=== PATIENT | female | born 1950 | race Caucasian/White ===

== ENCOUNTER → 2017-09-13 | Outpatient (CLI) | payer MEDICARE, OTHER ==
[~2017-09-13] MED LIST: ASPI325; LOSARTAN-HCTZ1 EAC1; Voltaren100 GM
== END | disposition home or self-care (01) ==
LOC: LAB 16:09 → LAB SHORT 16:09
PROVIDERS: Obstetrics & Gynecology
DX: Z01.419 Encounter for gynecological examination (general) (routine) without abnormal findings (principal)
CPT/HCPCS: 87624; G0123

== ENCOUNTER 2020-06-09 09:49 | Day surgery (SDC) | payer MEDICARE, OTHER ==
[~2020-06-09] VITALS: Ht 165.1 cm; Wt 114.2 kg
[~2020-06-09 09:49] MED LIST changes: -ASPI325; +ASPI325 PO; +CALCIUM 600 +1 EA11 PO; -LOSARTAN-HCTZ1 EAC1; +LOSARTAN-HCTZ1 EAC5 PO; +METO25 PO; +OMEGA-3 FISH O1 EAC6 PO; +TURMERIC500 M2 PO
== END 2020-06-09 11:58 | disposition home or self-care (01) ==
LOC: ORSCSDS 09:49
PROVIDERS: Internal Medicine Gastroenterology
PROC: 0DBK8ZX Excision of Ascending Colon, Via Natural or Artificial Opening Endoscopic, Diagnostic (ICD-10-PCS; principal; 2020-06-09 11:00)
PROC: 0DBL8ZX Excision of Transverse Colon, Via Natural or Artificial Opening Endoscopic, Diagnostic (ICD-10-PCS; principal; 2020-06-09 11:00)
DX: Z12.11 Encounter for screening for malignant neoplasm of colon (principal); Z86.010 Personal history of colon polyps; D12.3 Benign neoplasm of transverse colon; D12.2 Benign neoplasm of ascending colon; K21.9 Gastro-esophageal reflux disease without esophagitis; K64.8 Other hemorrhoids; I10 Essential (primary) hypertension; E66.01 Morbid (severe) obesity due to excess calories; Z68.41 Body mass index [BMI] 40.0-44.9, adult; Z79.82 Long term (current) use of aspirin; Z79.899 Other long term (current) drug therapy
CPT/HCPCS: 88305; J2704; J7120

== ENCOUNTER 2020-10-19 08:13 | Day surgery (SDC) | payer MEDICARE, OTHER ==
[~2020-10-19] VITALS: Ht 162.6 cm; Wt 112.0 kg
--- NOTE | 2020-10-19 09:21 | NUR ---
History, Chart, Medications and Allergies reviewed before start of procedure. Patient confirms NPO status and agrees with scheduled surgery. Lungs clear T/O to Auscultation.
--- NOTE | 2020-10-19 10:09 | NUR ---
KNEE HIGH YONATHAN HOSE WITH CALF PAS APPLIED TO BLE. NOZIN NASAL SYSTEM ARCHITECT X3 AMPULES USED TO CLEAN NARES BILAT PER DR LYONS ORDER.
--- NOTE | 2020-10-19 10:35 | NUR ---
UP TO BR TO VOID.
--- NOTE | 2020-10-19 17:05 | NUR ---
SHIFT SUMMARY S/P L HUA [id number], DRESSING CDI, POLAR CARINA IN PLACE. PT TOLERATING PO WELL. PT DENIES NEED TO VOID CURRENTLY BUT WILL CALL WHEN READY TO WALK TO RESTROOM. PAIN MANAGED PER EMAR WITH SCHEDULED TYLENOL AND TORODOL. DENIES NEED FOR FURTHER PAIN MEDICATION. PLAN IS TO WORK WITH THERAPY AND POSSIBLE DC HOME.
[2020-10-20 04:21] LABS: BASOPHILS ABSOLUTE AUTO 0.01 K/mm3 (0.00-0.23); BASOPHILS PERCENT AUTO 0 % (0-2); EOSINOPHILS PERCENT AUTO 0 % (0-6); Hemoglobin 11.6 g/dL (11.5-16.0); IMMATURE GRAN ABSOLUTE AUTO 0.05 K/mm3 (0.00-0.10); IMMATURE GRAN PERCENT AUTO 0 % (0-1); LYMPHOCYTES ABSOLUTE AUTO 1.39 K/mm3 (0.84-5.20); LYMPHOCYTES PERCENT AUTO 12 % (21-46); MONOCYTES ABSOLUTE AUTO 0.71 K/mm3 (0.16-1.47); MONOCYTES PERCENT AUTO 6 % (4-13); Mean Corpuscular HGB 31.2 pg (26.0-34.0); Mean Corpuscular HGB Conc 34.1 g/dL (31.5-36.5); Mean Corpuscular Volume 91 fL (80-100); Mean Platelet Volume 10.3 fL (9.1-12.4); NEUTROPHILS ABSOLUTE AUTO 9.87 K/mm3 (1.96-9.15); NEUTROPHILS PERCENT AUTO 82 % (41-73); Platelet Count 193 K/mm3 (150-400); RDW Coefficient Variation 13.4 % (11.7-14.2); RDW Standard Deviation 45.4 fL (35.1-46.3); Red Blood Cell Count 3.72 M/mm3 (3.80-5.20); White Blood Cell Count 12.03 K/mm3 (4.00-11.30)
[2020-10-20 04:39] LABS: Anion Gap 5 mmol/L (6-16); Blood Urea Nitrogen 22 mg/dL (8-24); Bun/Creatinine Ratio 25.6 (12.0-20.0); CO2, Blood 28 mmol/L (21-32); Chloride, Blood 105 mmol/L (98-108); Creatinine, Blood 0.86 mg/dL (0.40-1.00); Glomerular Filtration Rate >60 (60-); Glucose, Blood 113 mg/dL (70-99); Potassium, Blood 4.2 mmol/L (3.5-5.5); Sodium, Blood 138 mmol/L (136-145)
--- NOTE | 2020-10-20 04:58 | NUR ---
SHIFT SUMMARY A/OX4, 1 ASSIST WITH FWW AND GB. UP AMBULATING CHOUDHARY DURING SHIFT. VOIDING WELL, RATES PAIN 1-2. AQUACEL DRESSING C/D/I, POLAR PACK IN PLACE. VSS, NO ACUTE CHANGES AT THIS TIME. BED IN LOWEST POSITION WITH CALL LIGHT IN REACH. WILL CONTINUE TO MONITOR AND REPORT TO ONCOMING RN.
[2020-10-20] MEDS ORDERED: XARELTO10 M3 PO (08:34)
[2020-10-20] MEDS ORDERED: Percocet 5-3251 EACH PO (08:34)
--- NOTE | 2020-10-20 10:54 | NUR ---
DISCHARGE NOTE: PATIENT WAS EDUCATED ON DISCHARGE INSTRUCTIONS. SHE VERBALIZED UNDERSTANDING AND HAD NO FURTHER QUESTIONS AT THIS TIME. SHE IS ALERT AND ORIENTED X4. VS ARE WNL AND ON RA. PAIN IS MANAGED WITH PO PAIN MEDICATIONS. SHE HAS HER HARD PERSCRIPTIONS WITH HER INSTRUCTIONS. PATIENT IS DRESSED AND HAS HER ITEMS GATHERED. AQUACEL ON HER HIP IS C/D/I. SHE IS ABLE TO WIGGLE FINGERS AND TOES. SHE IS BEING WHEELCHAIRED OUT CURRENTLY TO MEET WITH HER SON. IV WAS DISCONTINUED AND WAS WNL.
== END 2020-10-20 11:00 | disposition home or self-care (01) ==
LOC: ORSCMMR 08:13 → ORD 13:30 → ORSCMMR 13:30 → SURS 14:09 → ORSCMMR 10-20 11:00
PROVIDERS: Orthopaedic Surgery
PROC: 0SR90JA Replacement of Right Hip Joint with Synthetic Substitute, Uncemented, Open Approach (ICD-10-PCS; principal; 2020-10-19 09:45)
DX: M16.11 Unilateral primary osteoarthritis, right hip (principal); I10 Essential (primary) hypertension; E78.5 Hyperlipidemia, unspecified; E66.01 Morbid (severe) obesity due to excess calories; Z68.41 Body mass index [BMI] 40.0-44.9, adult; Z79.82 Long term (current) use of aspirin; Z79.899 Other long term (current) drug therapy
CPT/HCPCS: 36415; 72170; 80048; 85025; 97110; 97116; 97161; 97530; A9270; C1776; J0171; J0690; J0735; J1100; J1885; J2250; J2370; J2405; J2704; J2710; J2795; J3010; J7120

== ENCOUNTER 2022-03-21 06:31 | Day surgery (SDC) | payer MEDICARE, OTHER ==
[~2022-03-21] VITALS: Ht 165.1 cm; Wt 117.3 kg
[~2022-03-21 06:31] MED LIST changes: +ASPI81CH PO; +C COMPLEX1000 M1 PO; +DILTIAZEM 24HR120 M4 PO; +FISH OIL PO; +Percocet 5-3251 EACH PO; +XARELTO10 M3 PO; +[UNRECOGNIZED DRUG - CODE] PO
--- NOTE | 2022-03-21 08:47 | NUR ---
Ambulatory in Day Surgery. Patient confirms NPO status and agrees with scheduled surgery. Pre-Op teaching done. Pt verbalizes understanding. Lungs clear T/O to Auscultation. Patient reports completing Chlorhexadine shower X2 prior to admission to hospital.
--- NOTE | 2022-03-21 17:53 | NUR ---
SHIFT SUMMARY PT HAS DONE WELL POST OP. SPINAL WORE OFF NICELY w/ GOOD PAIN MANAGEMENT TO PO MEDS. EATING, DRINKING, VOIDING. UP TO WORK w/ THERAPY & UP TO CHAIR FOR DINNER. PLEASANT & COOPERATIVE.
--- NOTE | 2022-03-22 04:26 | NUR ---
SUMMARY PT HAS NO NEW ISSUES NOTED. PT PAIN HAS BEEN MINIMAL. PT HAS BEEN SLEEPING WELL THIS SHIFT. PT AMBULATORY AND VOIDING WELL. CALL LIGHT IN REACH.
[2022-03-22 05:13] LABS: BASOPHILS ABSOLUTE AUTO 0.01 K/mm3 (0.00-0.23); BASOPHILS PERCENT AUTO 0 % (0-2); EOSINOPHILS PERCENT AUTO 0 % (0-6); Hematocrit 34.1 % (33.0-51.0); Hemoglobin 11.3 g/dL (11.5-16.0); IMMATURE GRAN ABSOLUTE AUTO 0.04 K/mm3 (0.00-0.10); IMMATURE GRAN PERCENT AUTO 0 % (0-1); LYMPHOCYTES ABSOLUTE AUTO 1.02 K/mm3 (0.84-5.20); LYMPHOCYTES PERCENT AUTO 9 % (21-46); MONOCYTES ABSOLUTE AUTO 0.68 K/mm3 (0.16-1.47); MONOCYTES PERCENT AUTO 6 % (4-13); Mean Corpuscular HGB 31.4 pg (26.0-34.0); Mean Corpuscular HGB Conc 33.1 g/dL (31.5-36.5); Mean Corpuscular Volume 95 fL (80-100); NEUTROPHILS ABSOLUTE AUTO 10.07 K/mm3 (1.96-9.15); NEUTROPHILS PERCENT AUTO 85 % (41-73); Platelet Count 193 K/mm3 (150-400); RDW Coefficient Variation 13.2 % (11.7-14.2); RDW Standard Deviation 45.5 fL (35.1-46.3); White Blood Cell Count 11.82 K/mm3 (4.00-11.30)
[2022-03-22 05:43] LABS: Bun/Creatinine Ratio 23.9 (12.0-20.0); Calcium, Blood 9.2 mg/dL (8.5-10.1); Creatinine, Blood 0.8 mg/dL (0.40-1.00); Potassium, Blood 4.5 mmol/L (3.5-5.5)
[2022-03-22] MEDS ORDERED: ASPI81CH PO (07:17)
[2022-03-22] MEDS ORDERED: Percocet 5-3251 EACH PO (07:18)
[2022-03-22] MEDS ORDERED: HYDR10 PO (07:32)
--- NOTE | 2022-03-22 09:44 | NUR ---
DISCHARGE NOTE: PATIENT WAS EDUCATED ON DISCHARGE INSTRUCTIONS. SHE VERBALIZED UNDERSTANDING OF INSTRUCTIONS AND HAD NO FURTHER QUESTIONS AT THIS TIME. PAIN IS MANAGED WITH PO PAIN MEDICATIONS. IV WAS TAKEN OUT AND WNL. HER LEFT KNEE HAS JERMAN WRAP AND AN AQUACEL THAT ARE C/D/I. SHE IS ABLE TO MOVE FINGERS AND TOES WHEN ASKED. DENIES NUMBNESS OR TINGLING. SHE IS TOLERATING PO INTAKE AND IS VOIDING/PASSING GAS. SHE IS A SBA WITH FWW AND GAIT BELT. PATIENT IS DRESSED AND HAS PERSONAL ITEMS IN THE ROOM GATHERED. SHE IS BEING WHEELCHAIRED OUT TO HER DAUGHTERS CAR TO BE TAKEN HOME. PATIENT ALREADY HAS HER HARD PERSCRIPTIONS FILLED OUT AND WAITING FOR HER AT HOME.
== END 2022-03-22 09:44 | disposition home or self-care (01) ==
LOC: ORSCMMR 06:31 → ORD 08:15 → ORSCMMR 08:15 → SURS 11:45 → ORSCMMR 03-22 09:44
PROVIDERS: Orthopaedic Surgery
PROC: 0SRD0JA Replacement of Left Knee Joint with Synthetic Substitute, Uncemented, Open Approach (ICD-10-PCS; principal; 2022-03-21 08:15)
DX: M17.12 Unilateral primary osteoarthritis, left knee (principal); I10 Essential (primary) hypertension; E66.01 Morbid (severe) obesity due to excess calories; Z68.41 Body mass index [BMI] 40.0-44.9, adult; Z79.899 Other long term (current) drug therapy
CPT/HCPCS: 36415; 73560-LT; 80048; 85025; 93005; 93010; 97110; 97116; 97162; A9270; C1776; J0171; J0690; J0735; J1885; J2250; J2704; J2795; J3010; J7120

== ENCOUNTER 2022-08-22 06:37 | Day surgery (SDC) | payer MEDICARE, OTHER ==
[2022-08-22] VITALS (25 sets, daily range): BP systolic 98–152; BP diastolic 53–98
[~2022-08-22] VITALS: Ht 162.6 cm; Wt 113.8 kg
[~2022-08-22 06:37] MED LIST changes: +HYDR10 PO; +LOSARTAN-HCTZ1 EACH PO
--- NOTE | 2022-08-22 11:50 | NUR ---
WHEN PT CAME TO PACU MONITOR SHOWED CHRIS ROBLES AWARE OF THIS AND NO NEW ORDERS . WHILE IN PACU SHE WOULD BE IN NSR THN TO CHRIS OFF AND ON SHE HAS OFFERED NO COMPLAINTS EXCEPT FOR RIGHT KNEE/LEG PAIN
--- NOTE | 2022-08-22 17:03 | NUR ---
Shift Summary Pt to room post R total knee, spinal block not effective, pt reports full sensation. Aquacel, john wrap and polar pack in place. Pt reporting pain to site, medicated per emar. Pt up in chair and has voided post op. Pt alert, oriented x4; clam and cooperative with care. Pt deneis chest pain/pressure, sob, nausea and dizziness. Spo2 >90% on ra, breathing even and unlabored. Abd soft, nontender, +bt. Bp and hr stable. Other vss. Report given to rn assuming care of patient. I have reviewed the certified nursing assistant instructor documentation and am in agreement.
[2022-08-23 00:34] VITALS: BP 125/57
[2022-08-23 04:49] LABS: BASOPHILS ABSOLUTE AUTO 0.01 K/mm3 (0.00-0.23); BASOPHILS PERCENT AUTO 0 % (0-2); EOSINOPHILS PERCENT AUTO 0 % (0-6); Hematocrit 31.4 % (33.0-51.0); Hemoglobin 10.5 g/dL (11.5-16.0); IMMATURE GRAN ABSOLUTE AUTO 0.04 K/mm3 (0.00-0.10); IMMATURE GRAN PERCENT AUTO 0 % (0-1); LYMPHOCYTES ABSOLUTE AUTO 1.11 K/mm3 (0.84-5.20); LYMPHOCYTES PERCENT AUTO 10 % (21-46); MONOCYTES ABSOLUTE AUTO 0.62 K/mm3 (0.16-1.47); MONOCYTES PERCENT AUTO 5 % (4-13); Mean Corpuscular HGB 30.5 pg (26.0-34.0); Mean Corpuscular HGB Conc 33.4 g/dL (31.5-36.5); Mean Corpuscular Volume 91 fL (80-100); NEUTROPHILS ABSOLUTE AUTO 9.88 K/mm3 (1.96-9.15); NEUTROPHILS PERCENT AUTO 85 % (41-73); Platelet Count 193 K/mm3 (150-400); RDW Coefficient Variation 13.2 % (11.7-14.2); RDW Standard Deviation 43.8 fL (35.1-46.3); Red Blood Cell Count 3.44 M/mm3 (3.80-5.20); White Blood Cell Count 11.66 K/mm3 (4.00-11.30)
[2022-08-23 05:13] LABS: Bun/Creatinine Ratio 27.1 (12.0-20.0); Calcium, Blood 9.4 mg/dL (8.5-10.1); Creatinine, Blood 0.81 mg/dL (0.40-1.00); Potassium, Blood 4.2 mmol/L (3.5-5.5)
--- NOTE | 2022-08-23 05:24 | NUR ---
SHIFT SUMMARY POD1 RIGHT TKA. SENSATION AND CIRCULATION REMAIN INTACT. DRESSING IS C/D/I. VSS. PT SLEPT WELL T/O THE NIGHT. MEDICATED FOR PAIN WITH PRNS AND SCHEDULED. PT WAS ABLE TO AMBULATE MULTIPLE TIME W/O DIFFICULTY. VOIDING AND TOLLERATING PO. NO ACUTE EVENTS NOTED T/O THE NIGHT. PLAN FOR PT TO WORK WITH PHYSICAL THERAPY AND D/C HOME. THE PATIENT IS CURRENTLY RESTING, IN NO DISTRESS, CALL LIGHT IN REACH
[2022-08-23 05:29] VITALS: BP 104/51
[2022-08-23 07:25] VITALS: BP 135/60
[2022-08-23] MEDS ORDERED: Percocet 5-3251 EACH PO (08:24)
[2022-08-23] MEDS ORDERED: ELIQUIS2.5 MG PO (08:25)
--- NOTE | 2022-08-23 11:52 | NUR ---
PT'S HR HAS BEEN LESS THAN 60 THIS MORNING. JIM HELD R/T LOW HR. PT'S HR CONTINUES TO BE LESS THAN 60. PT EDUCATED.
[2022-08-23 12:41] VITALS: BP 140/68
--- NOTE | 2022-08-23 13:52 | NUR ---
DISCHARGE PT WAS PROVIDED WITH WRITTEN AND VERBAL DISCHARGE INSTRUCTIONS; SHE REPORTED UNDERSTANDING. CLEAN DRESSINGS PROVIDED. PT MEETING ALL GOALS PRIOR TO DISCHARGE. PT'S HR HAS REMAINED <60, AND DIPPED OCCASIONALLY DOWN LOW 43 WHEN PULSE WAS BEING CHECKED; PT ASYMPTOMATIC. PT REPORTS LOW HR AND IRREGULAR RHYTHM AT BASELINE, AM CARDIZEM WAS HELD. DR. LYONS NOTIFIED AND STATED OK FOR PT TO DISCHARGE. PT EDUCATED REGARDING LOW HR AND ENCOURAGED TO MONITOR. PT WAS ASSISTED OUT TO HER DAUGHTERS VEHICLE AT APPROXIMATELY 1330.
== END 2022-08-23 14:56 | disposition home or self-care (01) ==
LOC: ORSCMMR 06:37 → ORD 08:15 → SURS 11:58 → ORSCMMR 08-23 13:35
PROVIDERS: Orthopaedic Surgery
PROC: 8E0Y0CZ Robotic Assisted Procedure of Lower Extremity, Open Approach (ICD-10-PCS; principal; 2022-08-22 08:15)
PROC: 0SRC06A Replacement of Right Knee Joint with Oxidized Zirconium on Polyethylene Synthetic Substitute, Uncemented, Open Approach (ICD-10-PCS; principal; 2022-08-22 08:15)
DX: M17.11 Unilateral primary osteoarthritis, right knee (principal); Z96.652 Presence of left artificial knee joint; I10 Essential (primary) hypertension; E66.9 Obesity, unspecified; Z68.41 Body mass index [BMI] 40.0-44.9, adult; Z79.82 Long term (current) use of aspirin; Z79.899 Other long term (current) drug therapy
CPT/HCPCS: 27447; 20985; S2900; 36415; 73560-RT; 80048; 85025; 97110; 97110-CQ; 97116; 97116-CQ; 97161; 97530; A9270; C1776; J0171; J0690; J0735; J1100; J1885; J2250; J2405; J2704; J2795; J3010; J7120